=== PATIENT | female | born 1960 | race Caucasian/White ===

== ENCOUNTER 2020-02-07 13:22 | Outpatient (CLI) | payer MEDICARE, SELFPAY ==
--- NOTE | 2020-02-07 13:30 | MM_ITS ---
WS: [id number] BILATERAL SCREENING DIGITAL MAMMOGRAM WITH CAD HISTORY: SCREENING COMPARISON: 07/17/2013, 09/25/2015 and 12/20/2018 Bilateral CC and MLO views submitted. Computer aided detection analyzed. Breast composition: The breasts are heterogeneously dense, which may obscure small masses. No suspici ous masses, microcalcifications or architectural distortion. There are several asymmetries within eac h breast. As compared to the most recent and prior studies dating back to 2013 these are all stable. MM/[place] [id number] IMPRESSION: BI-RADS: 2-Benign FOLLOW UP: 1 Year Follow-up
== END 2020-02-07 13:23 | disposition home or self-care (01) ==
LOC: RADSHAW 13:28
PROVIDERS: PCP Nurse Practitioner Family; Visit Provider Nurse Practitioner Family
DX: Z12.31 Encounter for screening mammogram for malignant neoplasm of breast (principal)
CPT/HCPCS: 77067

== ENCOUNTER → 2020-08-15 13:03 | Outpatient (BNVA) | payer MEDICARE, SELFPAY | PROVIDERS: PCP Nurse Practitioner Family; Visit Provider Family Medicine | DX: J44.9 Chronic obstructive pulmonary disease, unspecified (principal); Z20.822 Contact with and (suspected) exposure to COVID-19 | CPT/HCPCS: 87635 ==

== ENCOUNTER 2020-08-20 13:37 | Outpatient (CLI) | payer MEDICARE, SELFPAY ==
--- NOTE | 2020-08-20 09:00 | PFTS_ITS ---
Date of Study:08/20/20 Date of Dictation: 08/23/2020 MECHANICS: Postbronchodilator forced vital capacity (FVC) is normal. Postbronchodilator forced expiratory volume in one second (FEV1) is moderately reduced 68%. FEV1/FVC is reduced. There is no significant response to bronchodilators. FLOW VOLUME LOOP: Severe sloping of the expiratory limb suggestive of airway obstruction . LUNG VOLUMES: Total lung capacity (TLC) is increased 149%. Residual volume (RV) is increased 192% suggestive of severe air trapping. DIFFUSING CAPACITY FOR CARBON MONOXIDE: Normal . INTERPRETATION: The spirometry lung volumes suggestive of moderate obstructive ventilatory defect with severe air trapping. Gas transfer is normal. Correlate clinically. MTDD
--- NOTE | 2020-08-20 14:15 | PFTS_ITS ---
Date of Study:08/20/20 Date of Dictation: 08/23/2020 MECHANICS: Postbronchodilator forced vital capacity (FVC) is normal. Postbronchodilator forced expiratory volume in one second (FEV1) is moderately reduced 68%. FEV1/FVC is reduced. There is no significant response to bronchodilators. FLOW VOLUME LOOP: Severe sloping of the expiratory limb suggestive of airway obstruction . LUNG VOLUMES: Total lung capacity (TLC) is increased 149%. Residual volume (RV) is increased over 92% suggestive of severe air trapping. DIFFUSING CAPACITY FOR CARBON MONOXIDE: Normal . INTERPRETATION: The spirometry lung volumes suggestive of moderate obstructive ventilatory defect with severe air trapping. Gas transfer is normal. Correlate clinically. MTDD
== END 2020-08-20 13:38 | disposition home or self-care (01) ==
LOC: RT 13:39
PROVIDERS: PCP Nurse Practitioner Family; Visit Provider Internal Medicine Critical Care Medicine
DX: J44.9 Chronic obstructive pulmonary disease, unspecified (principal)
CPT/HCPCS: 94060; 94726; 94729; J7611

== ENCOUNTER 2020-08-20 13:42 | Outpatient (CLI) | payer MEDICARE, SELFPAY ==
--- NOTE | 2020-08-20 14:18 | CT_ITS ---
WS: [id number] LDCT LUNG CANCER SCREENING HISTORY: HX OF TOBACCO USE TECHNIQUE: Axial imaging performed from the apices to 1 cm below the costophrenic angles. Coronal and sagittal reformats are submitted with axial MIP series. All CT scans at [facility] use at least one of these dose optimization techniques: automated exposure control; mA and/or kV adjustment per patient size (includes targeted exams where dose is matched to clinical indication); or iterativ e reconstruction. DLP: 56.17 mGy.cm DIvol: 1.58 mGy COMPARISON: None available. Diagnostic quality: Satisfactory Lung Nodules: No nodules or endobronchial lesions. Lungs: Thin linear scar at the lingula. Cylindrical bronchiectasis RIGHT lower lobe. Heart: Normal size heart. Other findings: Minimal atherosclerosis aorta. Pulmonary artery is equal to the aorta. Small hiatal h ernia. Mild thoracic spondylosis. CT/CT lung screening [id number] IMPRESSION: LUNG-RADS: 1-Negative FOLLOW UP: 12 Month: Continue annual screening with LDCT OTHER FINDINGS (S MODIFIER): None.
== END 2020-08-20 13:43 | disposition home or self-care (01) ==
LOC: RAD 13:45
PROVIDERS: PCP Nurse Practitioner Family; Visit Provider Internal Medicine Critical Care Medicine
DX: Z12.2 Encounter for screening for malignant neoplasm of respiratory organs (principal); Z87.891 Personal history of nicotine dependence; K44.9 Diaphragmatic hernia without obstruction or gangrene; M47.814 Spondylosis without myelopathy or radiculopathy, thoracic region
CPT/HCPCS: 71271

== ENCOUNTER 2020-11-29 14:53 | Outpatient (CLI) | payer MEDICARE, SELFPAY ==
--- NOTE | 2020-11-29 15:01 | CT_ITS ---
WS: [id number] CT scan of the abdomen and pelvis with Oral and IV contrast. Additional two-dimensional coronal and s agittal reconstruction was performed. 11/29/2020 Clinical Data: LLQ ABDOMINAL PAIN Comparison: CT abdomen and pelvis, 02/17/2019. DLP: 1099.[address] scans at [facility] use at least one of these dose optimization techniques: automat ed exposure control; mA and/or kV adjustment per patient size (includes targeted exams where dose is matched to clinical indication); or iterative reconstruction. Findings: The lower lungs show no nodules, masses or effusions. The liver, gallbladder, spleen, adrenal glands and pancreas are normal. The kidneys show equal bilateral contrast excretion with small bilateral cysts unchanged. No hydronep hrosis, renal calculi or masses are noted. The abdominal aorta is normal in size calcification in the wall.. No appendicitis is seen. The stomach and small bowel are unremarkable. There is a small area of infla mmation in the left lower quadrant affecting the proximal sigmoid colon. This region was noted on e prior study. No abscess, ascites, adenopathy, mass, obstruction or free air is seen. The bladder is unremarkable. The uterus is absent. No inguinal hernia is seen. The bones of the lower thorax, lumbar spine, pelvis, and hips show osteoarthritis of the lower thorac ic vertebral bodies. CT/CT abdomen pelvis w con* [id number] Impression: Minimal inflammatory change in the left lower quadrant in the same region as no arlyn before which was called epiploic appendagitis but could represent a small r egion of this inflammatory colitis.
[2020-11-29] MEDS: iohexol 300 mg/mL 100 mL Btl IV (15:49)
== END 2020-11-29 14:54 | disposition home or self-care (01) ==
LOC: RADWPI 14:56
PROVIDERS: PCP Nurse Practitioner Family; Visit Provider Nurse Practitioner Family
DX: R10.32 Left lower quadrant pain (principal)
CPT/HCPCS: 74177; Q9967

== ENCOUNTER 2021-03-27 14:32 | Outpatient (CLI) | payer MEDICARE, SELFPAY ==
--- NOTE | 2021-03-27 14:37 | MM_ITS ---
WS: [id number] BILATERAL DIGITAL SCREENING MAMMOGRAPHY WITH CAD CLINICAL INFORMATION: SCREENING HISTORY: Screening mammogram. No current complaints. COMPARISON: February 07, 2020 TECHNIQUE: Bilateral CC and MLO views. FINDINGS: The breasts are composed of heterogeneous fibroglandular density tissue, which can limit the detectio n of small underlying mass lesions. Tiny punctate calcification left breast. No suspicious mass, asym metry, calcifications, or architectural distortion. No evidence of malignancy. MM/[place] [id number] IMPRESSION: BI-RADS: 2-Benign FOLLOW UP: 1 Year Follow-up Recommend return to annual screening mammography.
== END 2021-03-27 14:33 | disposition home or self-care (01) ==
LOC: RADSHAW 14:36
PROVIDERS: PCP Nurse Practitioner Family; Visit Provider Nurse Practitioner Family
DX: Z12.31 Encounter for screening mammogram for malignant neoplasm of breast (principal)
CPT/HCPCS: 77067

== ENCOUNTER 2021-07-01 15:20 | Emergency (ER) | payer MEDICARE, SELFPAY ==
[2021-07-01 15:40] VITALS: BP 134/79; PULSE 84; RESP 19; TEMP 36.9; O2SAT 96; BMI 28.1
--- NOTE | 2021-07-01 15:49 | XRR_ITS ---
PROCEDURE INFORMATION: Exam: XR Chest Exam date and time: 07/01/2021 3:49 PM Age: 60 years old Clinical indication: Pain; Angina pectoris; Additional info: Chest pain TECHNIQUE: Imaging protocol: XR of the chest. Views: 1 view. COMPARISON: CT lung screening [id number] 08/20/2020 3:01 PM FINDINGS: Lungs: Linear atelectasis or scar in the left mid lung. The lungs are otherwise clear. Pleural spaces: Unremarkable. No pleural effusion. No pneumothorax. Heart/Mediastinum: Unremarkable. No cardiomegaly. Bones/joints: Unremarkable. XR/XR chest 1V portable [id number] IMPRESSION: No acute finding.
--- NOTE | 2021-07-01 15:50 | W.ED.URI ---
Documented by User: MILADIS Leal 07/01/21 15:56 HPI - URI/Sore Throat General: Chief Complaint: Chest Pain Stated Complaint: Chest pains is being treated for a lung infection Time Seen by Provider: 07/01/21 15:40 Source: patient Mode of arrival: ambulatory Limitations: no limitations History of Present Illness: Patient is a nice 60-year-old female who presents to ED today with a complaint of cough, and right sided lung pain. Patient tells me approximately a month ago she is fairly certain she had a COVID infection. Patient states she had every sign and symptom of COVID and states her was also ill with similar symptoms. She states they never got tested and quarantined and treated at home. Patient feels like all of the rhinorrhea, nasal congestion, sinus pain/pressure is now moved down into her chest. She states she is having a cough and is having right sided chest pains with coughing and deep inhalation. She does not complain of much pain at rest. 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 Patient has not been running fevers. Patient was seen at urgent care 3 days ago and placed on prednisone, an antibiotic which she does not remember the name, and juan stephens. MD elicited complaint: other (cough, R sided chest/lung pain) Onset (ago): day(s) Consistency: constant Able to tolerate fluids by mouth: Yes Exacerbating factors: other (coughing, deep inhalation) Relieving factors: nothing Associated symptoms: Reports chest pain (R sided); Deny abdominal pain, chills, diarrhea, fever(s), headache(s), nausea or vomiting Review of Systems Const: Denies: fever(s), chills, body aches, fatigue or malaise Card: Reports: chest pain (R sided); Denies: palpitations, irregular heart rhythm, edema, swelling of feet/ankles, lightheadedness, syncope or pre-syncope Resp: Reports: productive cough, pain on inspiration and chest congestion; Denies: dyspnea, wheezing or hemoptysis GI: Denies: abdominal pain, nausea, vomiting or diarrhea Musc: Denies: neck pain, back pain, extremity pain, extremity swelling, joint pain, joint swelling or joint redness Neuro: Denies: headache(s) or dizziness PFSH ED PFSH: Medical History Alcohol abuse Asthma COPD (chronic obstructive pulmonary disease) Hepatitis C Hypothyroid Insomnia Surgical History H/O hand surgery History of hysterectomy History of liver biopsy Family History Father CAD (coronary artery disease) Stroke Mother Diabetes Social History Smoking and tobacco status: former smoker Quit status (tobacco): has quit using tobacco Year quit tobacco: 2016 Former quit date comment: Hx of 2.5 PPD x 40 Years Second hand smoke exposure: Yes Smoking risk assessment/counseling performed?: No Alcohol intake: former Counseling given: No Counseling given: No Lives independently: Yes Household members: spouse Marital status: Current occupational status: disabled Current occupational exposures/hazards: No 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 History of recent travel: No Current gender identity: Female Physical Exam Const: COMMON NORMALS: no acute distress, average body habitus, patient oriented x3, no limitations, healthy appearing, alert and well nourished GENERAL APPEARANCE: cooperative HENMT: COMMON NORMALS: normocephalic and atraumatic HEAD & SCALP: normal to inspection, normocephalic and atraumatic FACE & SINUS: normal facial exam Chest: COMMONS NORMALS: normal inspection of the chest OTHER: TTP R anteriolateral chest wall Resp: COMMON NORMALS: normal respiratory effort AUSCULTATION: diminished lung sounds on the right Cardio: COMMON NORMALS: regular rate, regular rhythm and Peripheral pulses 2+ throughout RATE: regular rate RHYTHM: regular rhythm PERIPHERAL PULSES: Peripheral pulses 2+ throughout GI: COMMON NORMALS: Normal to inspection, nondistended, normoactive bowel sounds present, Soft to palpation, non-tender, No hepatosplenomegaly present and no masses PALPATION: Yes Soft to palpation and Yes No hepatosplenomegaly present Back/Pelvis: COMMON NORMALS: thoracic and lumbar spine normal to inspection, no thoracic nor lumbar tenderness and thoraco-lumbar ROM normal Extremity: COMMON NORMALS: capillary refill normal, no clubbing, cyanosis or edema, no calf tenderness and no pedal edema Neuro: EMILIE COMA SCALE: document GCS findings [place]arrass coma scale eye opening: Spontaneous Emilie coma scale verbal response: Orientated [place] coma scale motor response: Obey commands Emilie coma scale total score: 15 COMMON NORMALS: patient oriented x3, moves all extremities, no focal motor deficits and no sensory deficits noted SENSORIUM/ORIENTATION: Yes alert Skin: COMMON NORMALS: no rashes or lesions noted GENERAL SKIN EXAM: no rashes or lesions noted Course Vital Signs: Vital signs: Vital Signs Temperature 98.4 F 07/01/21 15:40 Pulse Rate 83 07/01/21 17:22 Respiratory Rate 20 H 07/01/21 17:22 Blood Pressure 134/88 07/01/21 16:34 Pulse Oximetry 95 07/01/21 17:22 MDM - URI/Sore Throat Lab Data : 07/01/21 15:59 07/01/21 15:59 Radiology Impressions Chest X-Ray 07/01/21 15:49 IMPRESSION: No acute finding. Laboratory Results WBC 8.0 10^3/uL (4.0-10.0) 07/01/21 15:59 RBC 4.52 10^6/uL (4.1-5.3) 07/01/21 15:59 Hgb 12.9 g/dL (11.5-15.3) 07/01/21 15:59 Hct 41.1 % (37.0-47.0) 07/01/21 15:59 MCV 90.9 fl (81-99) 07/01/21 15:59 MCH 28.5 pg (28.0-34.0) 07/01/21 15:59 MCHC 31.4 g/dL (30.0-36.0) 07/01/21 15:59 RDW 13.2 % (12.1-15.1) 07/01/21 15:59 Plt Count 355 10^3/cmm (130-400) 07/01/21 15:59 MPV 9.6 fL (7.4-10.4) 07/01/21 15:59 Neut % (Auto) 81.0 % 07/01/21 15:59 Lymph % (Auto) 14.6 % 07/01/21 15:59 [place] % (Auto) 3.0 % 07/01/21 15:59 Eos % (Auto) 0.3 % 07/01/21 15:59 Baso % (Auto) 0.5 % 07/01/21 15:59 Neut # (Auto) 6.44 10^3/uL (1.8-7.7) 07/01/21 15:59 Lymph # (Auto) 1.2 10^3/uL (0.8-4.8) 07/01/21 15:59 [place] # (Auto) 0.2 10^3/uL (0.2-0.9) 07/01/21 15:59 Eos # (Auto) 0.0 10^3/uL (0.0-0.8) 07/01/21 15:59 Baso # (Auto) 0.0 10^3/uL (0.0-0.1) 07/01/21 15:59 Nucleated RBC % (auto) 0 % 07/01/21 15:59 Nucleated RBCs # 0.0 /100WBC 07/01/21 15:59 D-Dimer 0.44 ug/mIFEU (0-0.59) 07/01/21 17:00 Sodium 140 mmol/L (136-145) 07/01/21 15:59 Potassium 4.6 mmol/L (3.5-5.1) 07/01/21 15:59 Chloride 104 mmol/L (98-107) 07/01/21 15:59 Carbon Dioxide 22 mmol/L (22-29) 07/01/21 15:59 Anion Gap 18.6 (5-19) 07/01/21 15:59 BUN 14 mg/dL (6-20) 07/01/21 15:59 Creatinine 0.6 mg/dL (0.5-0.9) 07/01/21 15:59 GFR Calculation 102.3 mL/min (90-130) 07/01/21 15:59 Glucose 103 mg/dL (65-115) 07/01/21 15:59 Calculated Osmolality 291 mOsm/kg (285-295) 07/01/21 15:59 Calcium 10.2 mg/dL (8.5-10.5) 07/01/21 15:59 Total Bilirubin 0.2 mg/dL (0.15-1.2) 07/01/21 15:59 AST 16 U/L (0-32) 07/01/21 15:59 ALT 25 U/L (0-33) 07/01/21 15:59 Alkaline Phosphatase 131 IU/L (35-105) H 07/01/21 15:59 Troponin T Baseline 6 ng/L (0-10) 07/01/21 15:59 Total Protein 7.2 g/dL (6.6-8.7) 07/01/21 15:59 Albumin 4.6 g/dL (3.5-5.2) 07/01/21 15:59 Globulin 2.6 g/dL (1.3-4.6) 07/01/21 15:59 Procalcitonin 0.03 ng/mL (0-0.5) 07/01/21 15:59 Discharge Plan Discharge Patient Disposition: Home Clinical Impression: Atypical chest pain COPD (chronic obstructive pulmonary disease) Qualifiers: COPD type: unspecified COPD Qualified Code(s): J44.9 - Chronic obstructive pulmonary disease, unspecified Condition: Stable Prescriptions: No Action montelukast [Singulair] 10 mg tablet 10 mg PO DAILY 0RF amitriptyline 50 mg tablet 50 mg PO DAILY 0RF levothyroxine [Synthroid] 137 mcg tablet 137 mcg PO DAILY 0RF ipratropium-albuterol 0.5 mg-3 mg(2.5 mg base)/3 mL solution for nebulization 3 ml inhalation Q4H PRN (Reason: wheezing) Qty: 180 3RF Trelegy Ellipta 100-62.5-25 mcg blister with device 1 inh inhalation DAILY 30 Days Qty: 60 3RF albuterol sulfate [ProAir HFA] 90 mcg/actuation HFA aerosol inhaler 2 puff inhalation Q6H PRN (Reason: shortness of breath or wheezing) Qty: 8.5 3RF doxycycline hyclate 100 mg capsule 100 mg PO BID 0RF prednisone 20 mg tablet 40 mg PO DAILY 0RF Tessalon Perles 100 mg Capsule 100 mg PO TID PRN (Reason: Cough) 0RF Discharge Orders: Discharge ED (Routine); Ordered 07/01/21 Ordered By: Nitin Culver Referrals: Gerri Mancia FNP [Primary Care Provider] - Discharge Diet: Usual diet Discharge Activity: Increase activity as tolerated Activity Restrictions/Additional Instructions: Use acetaminophen or ibuprofen for chest wall pain. Drink plenty of water with medications. Continue with routine care with nebulizer treatments and antibiotic and steroid as directed. Follow-up with primary care in 2 to 3 days for recheck. Return to ER for worsening symptoms or new concerns. Sign Out Sign Out Data: Patient Sign Out occurred on 07/01/21 at 16:57. Patient's care was discussed, and care was transferred from to Nitin Culver. Post-Handoff Eval: Patient is resting well. Lungs were decreased in the bases with some rhonchi. Tenderness was noted in the right chest wall. Coding Level of Care Code ED Field Software Engineer for Chg Fwd Exam Comprehensive Documented by User: KEREN Mcneal 07/01/21 18:15 HPI - URI/Sore Throat General: Chief Complaint: Chest Pain Stated Complaint: Chest pains is being treated for a lung infection Time Seen by Provider: 07/01/21 15:40 [facility] ED PFSH: Medical History Alcohol abuse Asthma COPD (chronic obstructive pulmonary disease) Hepatitis C Hypothyroid Insomnia Surgical History H/O hand surgery History of hysterectomy History of liver biopsy Family History Father CAD (coronary artery disease) Stroke Mother Diabetes Social History Smoking and tobacco status: former smoker Quit status (tobacco): has quit using tobacco Year quit tobacco: 2017 Former quit date comment: Hx of 2.5 PPD x 40 Years Second hand smoke exposure: Yes Smoking risk assessment/counseling performed?: No Alcohol intake: former Counseling given: No Counseling given: No Lives independently: Yes Household members: spouse Marital status: Current occupational status: disabled Current occupational exposures/hazards: No 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 Patient reports about 1 month ago that she had COVID-19. Since then patient has not fully recovered from her cough and congestion. Patient does have a history of COPD. On exam patient has rhonchi in lung dillon. Decreased in the bases. Skin is warm and dry. Vital signs are normal. Patient has chest wall tenderness on palpation of the right chest wall. Differential diagnosis includes but not limited to pneumonia, exacerbation of COPD, ACS. Laboratory values were unremarkable. Troponin and D-dimer were both in normal limits. Chest x-ray indicated no pneumonia. Most likely the chest wall pain is secondary to musculoskeletal discomfort caused by coughing. Patient was encouraged to use acetaminophen and ibuprofen for the pain. Continue with care with oral steroids, antibiotic, and nebulizer treatments. No sign of serious illness was noted at this time. Lab Data : 07/01/21 15:59 07/01/21 15:59 Radiology Impressions Chest X-Ray 07/01/21 15:49
--- NOTE | 2021-07-01 15:54 | ECG_ITS ---
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 Measurements Intervals [place] Rate: 85 P: 73 AR: 148 QRS: -21 QRSD: 91 T: 72 QT: 341 QTc: 406 Interpretive Statements SINUS RHYTHM BORDERLINE LEFT AXIS DEVIATION [QRS AXIS < -20] INCOMPLETE RIGHT BUNDLE BRANCH BLOCK [90+ ms QRS DURATION, TERMINAL R IN V1/V2, 40+ ms S IN I/aVL/V4/V5/V6] No previous ECG available for comparison Electronically Signed On 07-01-2021 17:41:33 AUDIO VISUAL AIDS DIRECTOR by Yanet Chavez M.D. [id number]
[2021-07-01 16:02] VITALS: BP 134/88; PULSE 82; RESP 17; O2SAT 95
[2021-07-01 16:05] LABS: Basophils % 0.5 %; Eosinophils % 0.3 %; Hematocrit 41.1 % (37.0-47.0); Hemoglobin 12.9 g/dL (11.5-15.3); Lymphocytes # 1.2 10^3/uL (0.8-4.8); Lymphocytes % 14.6 %; Mean Corpuscular HGB Conc 31.4 g/dL (30.0-36.0); Mean Corpuscular Hemoglobin 28.5 pg (28.0-34.0); Mean Corpuscular Volume 90.9 fl (81-99); Mean Platelet Volume 9.6 fL (7.4-10.4); Monocytes # 0.2 10^3/uL (0.2-0.9); Neutrophils # 6.44 10^3/uL (1.8-7.7); Nucleated Red Blood Cells % 0 %; Platelet Count 355 10^3/cmm (130-400); Red Blood Count 4.52 10^6/uL (4.1-5.3); Red Cell Distribution Width 13.2 % (12.1-15.1)
[2021-07-01 16:34] VITALS: BP 134/88; PULSE 84; RESP 16; O2SAT 94
[2021-07-01 16:52] LABS: Troponin(5th) Baseline 6 ng/L (0-10)
[2021-07-01 17:00] LABS: Procalcitonin 0.03 ng/mL (0-0.5)
[2021-07-01 17:12] LABS: Alanine Aminotransferase 25 U/L (0-33); Albumin Level 4.6 g/dL (3.5-5.2); Alkaline Phosphatase 131 IU/L (35-105); Anion Gap 18.6 (5-19); Aspartate Amino Transferase 16 U/L (0-32); Blood Urea Nitrogen 14 mg/dL (6-20); Calcium 10.2 mg/dL (8.5-10.5); Carbon Dioxide 22 mmol/L (22-29); Chloride 104 mmol/L (98-107); Globulin 2.6 g/dL (1.3-4.6); Glomerular Filtration Rate 102.3 mL/min (90-130); Glucose 103 mg/dL (65-115); Osmolality Calculated 291 mOsm/kg (285-295); Potassium 4.6 mmol/L (3.5-5.1); Sodium 140 mmol/L (136-145); Total Bilirubin 0.2 mg/dL (0.15-1.2); Total Protein 7.2 g/dL (6.6-8.7)
[2021-07-01 17:22] VITALS: PULSE 83; RESP 20; O2SAT 95
[2021-07-01 17:53] LABS: D Dimer 0.44 ug/mIFEU (0-0.59)
[2021-07-01 18:48] VITALS: BP 143/91; PULSE 88; RESP 14; RESP 15; O2SAT 97
[2021-07-01 19:24] LABS: Troponin 5 2HR Delta 0 ABS# (0-10)
--- NOTE | 2021-07-01 21:54 | ECG_ITS ---
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 Measurements Intervals [place] Rate: 79 P: 52 ND: 147 QRS: -26 QRSD: 94 T: 47 QT: 360 QTc: 413 Interpretive Statements SINUS RHYTHM LOW QRS VOLTAGE IN PRECORDIAL LEADS [QRS DEFLECTION < 1.0 mV IN CHEST LEADS] INCOMPLETE RIGHT BUNDLE BRANCH BLOCK POSSIBLE ANTERIOR MYOCARDIAL INFARCTION , PROBABLY OLD Compared to ECG 07/01/2021 15:31:04 Low QRS voltage now present Myocardial infarct finding now present Electronically Signed On 07-01-2021 20:44:34 ASSISTANT WOMEN'S TENNIS COACH by Yanet Chavez M.D. [id number]
[2021-07-08 16:29] LABS: D Dimer 0.51 ug/mIFEU (0-0.59)
== END 2021-07-01 18:48 | disposition home or self-care (01) ==
PROVIDERS: Physician Assistant; Emergency Provider Nurse Practitioner Family; PCP Nurse Practitioner Family
DX: R07.89 Other chest pain (principal); J44.9 Chronic obstructive pulmonary disease, unspecified; Z86.19 Personal history of other infectious and parasitic diseases; Z87.891 Personal history of nicotine dependence
CPT/HCPCS: 36415; 71045; 80053; 84145; 84484; 85025; 85378; 93005; 99283

== ENCOUNTER 2021-07-08 07:46 | Outpatient (CLI) | payer MEDICARE, SELFPAY ==
--- NOTE | 2021-07-08 | XR_ITS ---
WS: [id number] PA and lateral chest, 07/08/2021 Clinical Data: PLEURITIC PAIN Comparison: Portable chest, 07/01/2021. Findings: No nodules, masses or effusions are seen. Minimal patchy opacities are seen in both lower l obes. This could represent mild acute pneumonia or atelectasis. The upper lobes are clear. The heart is normal. The pulmonary vascularity is not remarkable. XR/XR chest 2V* [id number] Impression: Minimal patchy bilateral lower lobe opacities which could represent minimal pne umonia and/or atelectasis.
== END 2021-07-08 07:47 | disposition home or self-care (01) ==
LOC: RADOUTREAD 07-09 07:47
PROVIDERS: PCP Nurse Practitioner Family; Visit Provider Nurse Practitioner
DX: R07.81 Pleurodynia (principal)
CPT/HCPCS: 85378

== ENCOUNTER → 2021-08-04 07:59 | Outpatient (BNVA) | payer MEDICARE, SELFPAY | PROVIDERS: PCP Nurse Practitioner Family; Visit Provider Internal Medicine Critical Care Medicine | DX: J44.9 Chronic obstructive pulmonary disease, unspecified (principal); Z87.891 Personal history of nicotine dependence; J45.909 Unspecified asthma, uncomplicated; B19.20 Unspecified viral hepatitis C without hepatic coma; E03.9 Hypothyroidism, unspecified | CPT/HCPCS: 99214 ==

== ENCOUNTER 2021-11-04 14:22 | Outpatient (CLI) | payer MEDICARE, SELFPAY ==
--- NOTE | 2021-11-04 14:32 | CT_ITS ---
WS: [id number] LDCT LUNG CANCER SCREENING TECHNIQUE: Noncontrast CT of the chest with coronal and sagittal reformatted images. CLINICAL INFORMATION: Lung cancer screening COMPARISON: August 21, 2019 1G DLP: 74.81 mGy.cm DIvol: Mean CTDIvol: 1.60 (mGy) All CT scans at [facility] use at least one of these dose optimization techniques: automat ed exposure control; mA and/or kV adjustment per patient size (includes targeted exams where dose is matched to clinical indication); or iterative reconstruction. FINDINGS: Both lungs are well aerated. No acute pulmonary infiltrates. Subsegmental atelectasis in the lingula. RIGHT lower lobe bronchiectasis. Bronchiectasis within the inferior segment LEFT upper lobe. Several tiny noncalcified scattered pulmonary nodules some of which appear new from previous measuring 2 to 4 mm. Some of these may be inflammatory. Largest nodule in the RIGHT lower lobe measures 5.2 mm new f rom previous. Recommend 6 month follow-up. Hypertrophic changes thoracic spine. Aortic calcification. Coronary calcification. No mediastinal or hilar lymphadenopathy. No axillary lymphadenopathy. Small low-attenuation lesions partially visualize d RIGHT hepatic lobe likely hepatic cysts. Adrenal glands are normal. Small esophageal hiatal hernia. CT/CT lung screening [id number] IMPRESSION: LUNG-RADS: 3-Probably Benign FOLLOW UP: 6 Month LDCT
== END 2021-11-04 14:23 | disposition home or self-care (01) ==
LOC: RAD 14:22
PROVIDERS: PCP Nurse Practitioner Family; Visit Provider Internal Medicine Critical Care Medicine
DX: Z12.2 Encounter for screening for malignant neoplasm of respiratory organs (principal); Z87.891 Personal history of nicotine dependence
CPT/HCPCS: 71271

== ENCOUNTER 2023-03-17 13:41 | Outpatient (CLI) | payer OTHER, SELFPAY ==
--- NOTE | 2023-03-17 14:43 | MM_ITS ---
WS: [id number] BILATERAL 3D TOMOSYNTHESIS DIGITAL SCREENING MAMMOGRAPHY WITH CAD CLINICAL INFORMATION: SCREEN HISTORY: Screening mammogram. No current complaints. COMPARISON: 2020 TECHNIQUE: Bilateral CC and MLO views. FINDINGS: The breasts are composed of heterogeneous fibroglandular density tissue, which can limit the detectio n of small underlying mass lesions. No suspicious mass, asymmetry, calcifications, or architectural d istortion. No evidence of malignancy. IMPRESSION: MM/[place] [id number] BI-RADS: 1-Negative FOLLOW UP: 1 Year Follow-up Recommend return to annual screening mammography.
== END 2023-03-17 13:42 | disposition home or self-care (01) ==
LOC: RAD 13:41
PROVIDERS: PCP Nurse Practitioner Family; Visit Provider Nurse Practitioner Family
DX: Z12.31 Encounter for screening mammogram for malignant neoplasm of breast (principal)
CPT/HCPCS: 77063; 77067

== ENCOUNTER 2023-07-31 21:28 | Emergency (ER) | payer OTHER, SELFPAY ==
[2023-07-31 21:46] VITALS: BP 129/72; PULSE 81; RESP 18; TEMP 36.6; O2SAT 96; BMI 28.6
--- NOTE | 2023-07-31 22:15 | XRR_ITS ---
PROCEDURE INFORMATION: Exam: XR Chest Exam date and time: 08/01/2023 12:00 AM Age: 63 years old Clinical indication: Patient HX: Persistent cough after choking episode when eating hamburger; Additional info: Aspiration/ choking TECHNIQUE: Imaging protocol: Radiologic exam of the chest. Views: 1 view. COMPARISON: CR XR chest 2V* 00006 12/31/2021 4:18 PM FINDINGS: Lungs: Left midlung scarring. No consolidation. Pleural spaces: No pleural effusion. No pneumothorax. Heart/Mediastinum: Normal cardiomediastinal silhouette. Bones/joints: No acute osseous abnormality. XR/XR chest 1V portable [id number] IMPRESSION: No acute findings.
--- NOTE | 2023-08-01 00:20 | XRR_ITS ---
PROCEDURE INFORMATION: Exam: XR Cervical Spine Exam date and time: 08/01/2023 12:23 AM Age: 63 years old Clinical indication: Patient HX: C/O neck pain after straining from a coughing episode. TECHNIQUE: Imaging protocol: Radiologic exam of the cervical spine. Views: 2 or 3 views. COMPARISON: CR (CHEST, ) 08/01/2023 12:00 AM FINDINGS: Bones/joints: Cervical spine visualized to C7 on lateral view. No acute fracture. Normal alignment. Soft tissues: Unremarkable. XR/XR cervical spine 3V* [id number] IMPRESSION: No acute findings.
--- NOTE | 2023-08-01 00:21 | ED_ITS ---
Documented by User: MILADIS Zavala 08/01/23 01:02 HPI - Neck Pain/Injury General: Chief Complaint: Upper Respiratory Infection Stated Complaint: Arm pain, couph Time Seen by Provider: 07/31/23 23:49 Source: patient Mode of arrival: ambulatory Limitations: no limitations History of Present Illness: Patient is a 61-year-old female presents the emergency department complaining of neck pain status post coughing fit onset tonight. Patient notes she has a history of chronic cough, and had this acutely exacerbated when she choked on a piece of hamburger meat. During the coughing fit, she notes sudden onset of cervical neck pain with radiation down both bilateral arms. She has never had this happen to her before and denies any previous neck injuries. She does note that the pain is worsened when she coughs, however she has not found anything else that makes the pain worse. She denies any distal neurovascular changes, headaches, chest pain, shortness of breath, or any other symptoms at this time. MD complaint: neck pain Onset (ago): hour(s) Place: home Radiation: right upper extremity and left upper extremity Severity: intermittent Quality: other (Shooting) Duration: intermittent Relieving factors: none Exacerbating factors: other (Coughing) Context: other (Choking) Associated symptoms: Denies headache(s) or nausea Treatments prior to arrival: none Review of Systems General: Reports: 10 or more systems reviewed and unremarkable except in HPI and below Const: Denies: fever(s), chills or fatigue Eyes: Denies: change in vision ENMT: Denies: throat pain, ear or mastoid pain or nasal discharge Card: Denies: chest pain, palpitations, swelling of feet/ankles or lightheadedness Resp: Reports: non-productive cough (Chronic); Denies: dyspnea or wheezing GI: Denies: abdominal pain, nausea, vomiting, diarrhea or constipation : Denies: flank pain, difficulty voiding, dysuria or urinary frequency Musc: Reports: neck pain and extremity pain (BUE); Denies: back pain or joint pain Skin/Breast: Denies: rash Neuro: Denies: headache(s), numbness in extremities or weakness in extremities PFS ED PFSH: Medical History Asthma Hypothyroid Hepatitis C Alcohol abuse COPD (chronic obstructive pulmonary disease) Insomnia Surgical History History of hysterectomy H/O hand surgery History of liver biopsy Family History Father CAD (coronary artery disease) Stroke Mother Diabetes Social History Smoking and tobacco/nicotine status: former use of tobacco/nicotine Quit status (tobacco/nicotine): has quit using Year quit tobacco: 2016 Former quit date comment: Hx of 2.5 PPD x 40 Years, started at age 15 Second hand smoke exposure: Yes Alcohol intake: former Substance/Drug Use: former Lives independently: Yes Household members: spouse Marital status: Current occupational status: disabled Current occupational exposures/hazards: No 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 Do you think of yourself as: Straight/Heterosexual Current gender identity: Female Physical Exam Const: COMMON NORMALS: no acute distress, patient oriented x3 and no limitations GENERAL APPEARANCE: cooperative, comfortable and well developed ORIENTATION/CONSCIOUSNESS: Yes awake, Yes oriented to person, Yes oriented to place and Yes oriented to time HENMT: COMMON NORMALS: normocephalic, atraumatic and hearing grossly normal bilaterally HEAD & SCALP: normocephalic and atraumatic Eye: COMMON NORMALS: Equal, round and reactive pupils present, EOMs intact bilaterally and conjunctivae normal CONJUNCTIVA: Yes conjunctivae normal PUPIL: Yes Equal, round and reactive pupils present Neck/C-Spine: COMMON NORMALS: full ROM, supple and no JVD GENERAL: Yes normal visual inspection CERVICAL SPINE: Yes cervical ROM normal and Yes normal cervical lordosis OTHER: No pain with range of motion. No cervical spine tenderness. No paracervical muscular tenderness. Resp: COMMON NORMALS: normal respiratory effort, No retractions, No use of accessory muscles and clear to auscultation bilaterally AUSCULTATION: clear to auscultation bilaterally Cardio: COMMON NORMALS: no JVD, regular rate, regular rhythm, No clicks present (Cardio), No murmurs present (Cardio) and No rub (Cardio) RATE: regular rate RHYTHM: regular rhythm Back/Pelvis: COMMON NORMALS: thoracic and lumbar spine normal to inspection, no thoracic nor lumbar tenderness and thoraco-lumbar ROM normal Extremity: COMMON NORMALS: normal to inspection, full ROM and capillary refill normal NARRATIVE EXTREMITY EXAM: Examination of the bilateral upper extremities normal. Normal strength bilaterally. No distal neurovascular deficits. Full painless range of motion. Neuro: COMMON NORMALS: patient oriented x3, CN's II-XII intact bilaterally, moves all extremities, no focal motor deficits and no sensory deficits noted SENSORIUM/ORIENTATION: Yes oriented to person, Yes oriented to place and Yes oriented to time Psych: COMMON NORMALS: mental status grossly normal and Normal thought process present THOUGHT PROCESS: Normal thought process present Skin: COMMON NORMALS: no rashes or lesions noted GENERAL SKIN EXAM: no rashes or lesions noted Course Vital Signs: Vital signs: Vital Signs Temperature 97.8 F 07/31/23 21:46 Pulse Rate 81 07/31/23 21:46 Respiratory Rate 18 07/31/23 21:46 Blood Pressure 129/72 07/31/23 21:46 Pulse Oximetry 96 07/31/23 21:46 Oxygen Delivery Me thod Room Air 07/31/23 21:46 MDM - Neck Pain/Injury Medical Decision Making This patient was seen and evaluated due to acute onset of neck pain following a coughing fit. On arrival patient's vitals normal. She reported that the only thing that would reproduce her pain was coughing. Examination unremarkable for any neurological deficits or reproducible tenderness to palpation. Due to her report of COPD and recent aspiration of food that caused her coughing fit, chest x-ray was obtained which showed no acute findings. Additionally ordered a cervical spine x-ray that additionally showed no acute findings. Gave the patient IM Toradol, Decadron, and Norflex and upon recheck patient states she feels better. I believe the patient's pain is due to a muscle strain, however I instructed her that if she does not improve she needs to follow-up with orthopedics for further imaging/evaluation. I will send her prescriptions for steroid, muscle relaxer, and pain relief. Patient agrees with discharge home and return precautions are given. Differential Diagnosis Likely disc disorder of cervical region, cervical radiculopathy and strain of neck muscle Lab Data Radiology Impressions Chest X-Ray 07/31/23 22:15 IMPRESSION: No acute findings. Cervical Spine X-Ray 08/01/23 00:20 IMPRESSION: No acute findings. All radiology interpretation(s) finalized by discharge Discharge Plan Discharge Patient Disposition: Home Clinical Impression: Acute strain of neck muscle Qualifiers: Encounter type: initial encounter Qualified Code(s): S16.1XXA - Strain of muscle, fascia and tendon at neck level, initial encounter Condition: Stable Prescriptions: New cyclobenzaprine 10 mg tablet 10 mg PO TID Qty: 30 0RF prednisone 20 mg tablet 60 mg PO ONCE 5 Days Qty: 15 0RF ketorolac 10 mg tablet 10 mg PO Q8H PRN (Reason: pain) Qty: 30 0RF No Action montelukast [Singulair] 10 mg tablet 10 mg PO DAILY amitriptyline 50 mg tablet 50 mg PO DAILY levothyroxine [Synthroid] 137 mcg tablet 137 mcg PO DAILY ipratropium-albuterol 0.5 mg-3 mg(2.5 mg base)/3 mL solution for nebulization 3 ml inhalation Q4H PRN (Reason: wheezing) Qty: 180 3RF Trelegy Ellipta 100-62.5-25 mcg blister with device 1 inh inhalation DAILY 30 Days Qty: 60 3RF albuterol sulfate [ProAir HFA] 90 mcg/actuation HFA aerosol inhaler 2 puff inhalation Q6H PRN (Reason: shortness of breath or wheezing) Qty: 8.5 5RF Tessalon Perles 100 mg Capsule 100 mg PO TID PRN (Reason: Cough) Discharge Orders: Discharge ED (Routine); Ordered 08/01/23 Ordered By: Glenroy Phillips Referrals: Gerri Mancia FNP [Primary Care Provider] - Discharge Diet: Usual diet Discharge Activity: Increase activity as tolerated Patient Instructions: Acute Neck Pain (ED) Activity Restrictions/Additional Instructions: Take medications as prescribed. Range of motion exercises as tolerated. Ice for added relief. Follow-up with orthopedics as discussed. Return with any new or concerning symptoms. Coding Level of Care Code ED Cut Out Machine Operator for Carlos Fwd Documented by User: Andrez Soliz DO 08/02/23 06:48 HPI - Neck Pain/Injury General: Chief Complaint: Upper Respiratory Infection Stated Complaint: Arm pain, couph Time Seen by Provider: 07/31/23 23:49 PFSH ED PFSH: Medical History Asthma Hypothyroid Hepatitis C Alcohol abuse COPD (chronic obstructive pulmonary disease) Insomnia Surgical History History of hysterectomy H/O hand surgery History of liver biopsy Family History Father CAD (coronary artery disease) Stroke Mother Diabetes Social History Smoking and tobacco/nicotine status: former use of tobacco/nicotine Quit status (tobacco/nicotine): has quit using Year quit tobacco: 2016 Former quit date comment: Hx of 2.5 PPD x 40 Years, started at age 15 Second hand smoke exposure: Yes Alcohol intake: former Substance/Drug Use: former Lives independently: Yes Household members: spouse Marital status: Current occupational status: disabled Current occupational exposures/hazards: No 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 On arrival patient's vitals normal. She reported that the only thing that would reproduce her pain was coughing. Examination unremarkable for any neurological deficits or reproducible tenderness to palpation. Due to her report of COPD and recent aspiration of food that caused her coughing fit, chest x-ray was obtained which showed no acute findings. Additionally ordered a cervical spine x-ray that additionally showed no acute findings. Gave the patient IM Toradol, Decadron, and Norflex and upon recheck patient states she feels better. I believe the patient's pain is due to a muscle strain, however I instructed her that if she does not improve she needs to follow-up with orthoped ics for further imaging/evaluation. I will send her prescriptions for steroid, muscle relaxer, and pain relief. Patient agrees with discharge home and return precautions are given. Chart reviewed Lab Data Radiology Impressions Chest X-Ray 07/31/23 22:15 IMPRESSION: No acute findings. Cervical Spine X-Ray 08/01/23 00:20 IMPRESSION: No acute findings. Discharge Plan Discharge Patient Disposition: Home Clinical Impression: Acute strain of neck muscle Qualifiers: Encounter type: initial encounter Qualified Code(s): S16.1XXA - Strain of muscle, fascia and tendon at neck level, initial encounter Condition: Stable Prescriptions: New cyclobenzaprine 10 mg tablet 10 mg PO TID Qty: 30 0RF prednisone 20 mg tablet 60 mg PO ONCE 5 Days Qty: 15 0RF ketorolac 10 mg tablet 10 mg PO Q8H PRN (Reason: pain) Qty: 30 0RF No Action montelukast [Singulair] 10 mg tablet 10 mg PO DAILY amitriptyline 50 mg tablet 50 mg PO DAILY levothyroxine [Synthroid] 137 mcg tablet 137 mcg PO DAILY ipratropium-albuterol 0.5 mg-3 mg(2.5 mg base)/3 mL solution for nebulization 3 ml inhalation Q4H PRN (Reason: wheezing) Qty: 180 3RF Trelegy Ellipta 100-62.5-25 mcg blister with device 1 inh inhalation DAILY 30 Days Qty: 60 3RF albuterol sulfate [ProAir HFA] 90 mcg/actuation HFA aerosol inhaler 2 puff inhalation Q6H PRN (Reason: shortness of breath or wheezing) Qty: 8.5 5RF Tessalon Perles 100 mg Capsule 100 mg PO TID PRN (Reason: Cough) Discharge Orders: Discharge ED (Routine); Ordered 08/01/23 Ordered By: Glenroy Phillips Referrals: Gerri Mancia FNP [Primary Care Provider] - Discharge Diet: Usual diet Discharge Activity: Increase activity as tolerated Patient Instructions: Acute Neck Pain (ED) Activity Restrictions/Additional Instructions: Take medications as prescribed. Range of motion exercises as tolerated. Ice for added relief. Follow-up with orthopedics as discussed. Return with any new or concerning symptoms. Coding Level of Care Code ED Cut Out Machine Operator for Carlos Sauceda
[2023-08-01] MEDS: ketorolac 60 mg/2 mL INJ IM (00:37)
[2023-08-01] MEDS: dexamethasone 10 mg/mL INJ 8 MG IM (00:37)
[2023-08-01] MEDS: orphenadrine 30 mg/mL Inj 2 mL 60 MG IM (00:39)
--- NOTE | 2023-08-02 07:27 | DCPLANNER ---
Message sent to Ortho for follow up Take medications as prescribed. Range of motion exercises as tolerated. Ice for added relief. Follow-up with orthopedics as discussed. Return with any new or concerning symptoms.
== END 2023-08-01 01:11 | disposition home or self-care (01) ==
PROVIDERS: Emergency Provider Physician Assistant; PCP Nurse Practitioner Family
DX: S16.1XXA Strain of muscle, fascia and tendon at neck level, initial encounter (principal); Z87.891 Personal history of nicotine dependence; Z86.19 Personal history of other infectious and parasitic diseases; J44.9 Chronic obstructive pulmonary disease, unspecified; X50.9XXA Other and unspecified overexertion or strenuous movements or postures, initial encounter
CPT/HCPCS: 71045; 72040; 96372; 99284; J1100; J1885; J2360

== ENCOUNTER 2024-04-17 13:29 | Outpatient (CLI) | payer MEDICARE, SELFPAY ==
--- NOTE | 2024-04-17 13:35 | MM_ITS ---
WS: [id number] BILATERAL 3D TOMOSYNTHESIS DIGITAL SCREENING MAMMOGRAPHY WITH CAD CLINICAL INFORMATION: SCREENING HISTORY: Screening mammogram. No current complaints. COMPARISON: 2022 TECHNIQUE: Bilateral CC and MLO views. FINDINGS: The breasts are composed of heterogeneous fibroglandular density tissue, which can limit the detectio n of small underlying mass lesions. No suspicious mass, asymmetry, calcifications, or architectural d istortion. No evidence of malignancy. Incidental punctate calcification LEFT breast. MM/MM [facility] tomosynthesis [id number] IMPRESSION: DENSITY: The breasts are heterogeneously dense, which may obscure small masses. BI-RADS: 2 - Benign FOLLOW UP: 1 Year Follow-up Recommend return to annual screening mammography.
== END 2024-04-17 13:30 | disposition home or self-care (01) ==
PROVIDERS: PCP Nurse Practitioner Family; Visit Provider Nurse Practitioner Family
DX: Z12.31 Encounter for screening mammogram for malignant neoplasm of breast (principal); R92.333 Mammographic heterogeneous density, bilateral breasts; R92.1 Mammographic calcification found on diagnostic imaging of breast
CPT/HCPCS: 77063; 77067

== ENCOUNTER 2024-12-22 14:11 | Outpatient (CLI) | payer MEDICARE, SELFPAY ==
--- NOTE | 2024-12-22 14:16 | CT_ITS ---
WS: [id number] LDCT LUNG CANCER SCREENING HISTORY: HX OF TOBACCO USE TECHNIQUE: Axial imaging performed from the apices to 1 cm below the costophrenic angles. Coronal and sagittal reformats are submitted with axial MIP series. All CT scans at [facility] use at least one of these dose optimization techniques: automated exposure control; mA and/or kV adjustment per patient size (includes targeted exams where dose is matched to clinical indication); or iterative reconstruction. DLP: 93.71 mGy.cm DIvol: Mean CTDIvol: 1.40 (mGy),Mean CTDIvol: 1.40 (mGy) COMPARISON: 11/04/2021 Diagnostic quality: Satisfactory Lungs: There are a few very tiny micronodules. No enlarging mass or nodule. The previously described nodule at the RIGHT lung base has resolved. No pneumonia. Subsegmental linear atelectasis in the lingula. Mild bronchiectasis RIGHT lower lobe, lingula and RIGHT middle lobe. Heart: Normal size heart with no pericardial effusion.. Small anterior pericardial thickening. Other findings: Mild atherosclerosis aorta. Mildly dilated pulmonary artery. No adenopathy. Small hiatal hernia. Increase in thoracic kyphosis. Thoracic spondylosis. CT/CT lung screening [id number] IMPRESSION: LUNG-RADS: 2-Benign Appearance or Behavior FOLLOW UP: 12 Month: Continue annual screening with LDCT OTHER FINDINGS (S MODIFIER): None.
--- NOTE | 2024-12-22 14:17 | US_ITS ---
WS: [id number] ULTRASOUND SOFT TISSUES LEFT lateral neck. HISTORY: LOCALIZED SWELLING,MASS, AND LUMP, NECK COMPARISON: None available. TECHNIQUE: 2-D and color Doppler imaging is submitted. Ultrasound directed to the LEFT lateral neck near the skull base. There is a small very superficial lymph node measuring 1.1 x 0.7 x 0.4 cm. No additional abnormalities. US/US soft tissue head neck [id number] IMPRESSION: Very small lymph node along the LEFT skull base.
== END 2024-12-22 14:12 | disposition home or self-care (01) ==
LOC: RAD 14:12
PROVIDERS: PCP Nurse Practitioner Family; Visit Provider Nurse Practitioner Family
DX: Z12.2 Encounter for screening for malignant neoplasm of respiratory organs (principal); Z87.891 Personal history of nicotine dependence; R59.0 Localized enlarged lymph nodes; I70.0 Atherosclerosis of aorta; K44.9 Diaphragmatic hernia without obstruction or gangrene; I28.8 Other diseases of pulmonary vessels; M40.204 Unspecified kyphosis, thoracic region; M47.814 Spondylosis without myelopathy or radiculopathy, thoracic region
CPT/HCPCS: 71271; 76536